=== PATIENT | male | born 1970 | race Caucasian/White ===

== ENCOUNTER 2023-11-27 07:57 | Emergency (ER) | payer MEDICAID ==
[~2023-11-27] VITALS: Ht 162.6 cm; Wt 69.0 kg
[2023-11-27 08:00] VITALS: O2SAT 95
[2023-11-27 08:19] LABS: BASOPHILS % 0.3 % (0.0-2.0); EOSINOPHILS % 0.1 % (0.0-5.0); HEMATOCRIT. 44.7 % (42.0-52.0); HEMOGLOBIN. 15.5 g/dL (14.0-18.0); LYMPHOCYTES % 7.8 % (20.0-50.0); MEAN CORPUSCULAR HEMOGLOBIN 29.8 pg (28.0-32.0); MEAN CORPUSCULAR HGB CONC 34.6 g/dL (31.0-37.0); MEAN CORPUSCULAR VOLUME 86.2 fL (80.0-94.0); MEAN PLATELET VOLUME 7.6 fl (7.4-10.4); MONOCYTES % 9.3 % (2.0-8.0); NEUTROPHILS % 82.5 % (40.0-76.0); PLATELET 190 x1000/uL (130-400); RED BLOOD CELL COUNT 5.19 mill/uL (4.7-6.1); RED CELL DISTRIBUTION WIDTH 13.6 % (11.6-14.6); WHITE BLOOD COUNT 6.2 x1000/uL (4.5-11.0)
[2023-11-27 08:27] LABS: CHLORIDE 106 mEq/L (98-107); POTASSIUM 3.7 mEq/L (3.5-5.1); SODIUM 139 mEq/L (136-145)
[2023-11-27 08:28] LABS: CALCIUM 8.4 mg/dL (8.7-10.4); CARBON DIOXIDE 25 mEq/L (21-32)
[2023-11-27 08:33] LABS: GLUCOSE 97 mg/dL (70-105); UREA NITROGEN BLOOD 20 mg/dL (9-23)
[2023-11-27 08:34] LABS: TROPONIN I HIGH SENSITIVITY 11 ng/L (3.0-53)
[2023-11-27] MEDS ORDERED: ONDA4TAB50 MT (10:25)
[2023-11-27] MEDS: IBUPROFEN 600MG TABLET PO ONE (10:37)
[2023-11-27] MEDS: ONDANSETRON 4MG ODT PO ONE (10:37)
[2023-11-27 11:04] VITALS: BP 117/119; PULSE 82; RESP 15; TEMP 98.1
== END 2023-11-27 11:30 | disposition home or self-care (01) ==
LOC: ER 07:57
DX: R07.9 Chest pain, unspecified (principal)
CPT/HCPCS: 99285; 71045; 80048; 85025; 84484; 36415; 93005; Q0162